=== PATIENT | male | born 1935 | race Caucasian/White ===

== ENCOUNTER 2016-06-08 16:23 | Emergency (ER) | payer MEDICARE ==
[2016-06-08] MEDS ORDERED: Lidocaine 1% 20 ML MDV ONE (16:53)
[2016-06-08] MEDS ORDERED: cloNIDine HCl 0.1 MG TAB ONE (16:56)
[2016-06-08] MEDS ORDERED: Triple Antibiotic Oint 1 GM Packet ONE (17:21)
--- NOTE | 2016-06-08 18:01 | RAD ---
LEFT HAND THREE VIEWS: History: Pain in the third and fourth metacarpal bones. Patient slammed hand in chicken coop after h e fell. FINDINGS: Multilevel mild degenerative change. Extensive vascular calcifications. Dorsal soft tissue injury rhoades spected. No fracture. No cortical irregularity. IMPRESSION: No fracture. POS: [facility]
== END 2016-06-08 17:20 | disposition home or self-care (01) ==
LOC: NAV ERS 16:23
DX: S61.217A Laceration without foreign body of left little finger without damage to nail, initial encounter (principal); S60.222A Contusion of left hand, initial encounter; I25.10 Atherosclerotic heart disease of native coronary artery without angina pectoris; E11.9 Type 2 diabetes mellitus without complications; I10 Essential (primary) hypertension; J44.9 Chronic obstructive pulmonary disease, unspecified; Z87.891 Personal history of nicotine dependence; W45.8XXA Other foreign body or object entering through skin, initial encounter; Y92.009 Unspecified place in unspecified non-institutional (private) residence as the place of occurrence of the external cause
CPT/HCPCS: J2001

== ENCOUNTER 2016-06-18 14:33 | Emergency (ER) | payer MEDICARE | END 2016-06-18 15:32 | disposition home or self-care (01) | LOC: NAV ERS 14:33 | DX: S61.217D Laceration without foreign body of left little finger without damage to nail, subsequent encounter (principal); L03.012 Cellulitis of left finger; I25.10 Atherosclerotic heart disease of native coronary artery without angina pectoris; E11.9 Type 2 diabetes mellitus without complications; I10 Essential (primary) hypertension; J44.9 Chronic obstructive pulmonary disease, unspecified; Z87.891 Personal history of nicotine dependence; Z79.899 Other long term (current) drug therapy; W61 Contact with birds (domestic) (wild) | CPT/HCPCS: 99282 ==